=== PATIENT | female | born 1955 | race Hispanic/Latino ===

== ENCOUNTER 2024-02-20 06:34 | Day surgery (SDC) | payer OTHER ==
[2024-02-20] MEDS ORDERED: NA CHLORIDE 0.9% 1,000 ML ONE (06:54)
[2024-02-20 07:27] LABS: Absolute Eosinophils 0.3 K/uL (0-0.5); Absolute Lymphocytes (CBC) 2.5 K/uL (0.7-4.9); Absolute Monocytes 0.7 K/uL (0.1-1.3); Absolute Neutrophil 5.6 K/uL (1.8-8.0); Basophils % 0.3 % (0-1.3); Eosinophils % 3.3 % (0-4.4); Hematocrit 39.3 % (36.0-45.0); Hemoglobin 13.5 g/dL (12.0-15.0); Lymphocytes % 27.6 % (15.3-44.8); MCH 33.2 pg (27.0-35.0); MCHC 34.4 g/dL (32.0-36.0); MCV 96.4 fL (80-100); Monocytes % 7.7 % (3.3-12.3); Neutrophils % 61.1 % (41.7-73.7); Platelets 308 thou/uL (152-406); RBC Red Blood Cell Count 4.07 M/uL (3.86-4.86); Red Cell Distribution Width 13.3 % (12.1-15.2)
[2024-02-20 07:39] LABS: Anion Gap 9.4 mEq/L (5.0-15.0); Potassium 4.4 mEq/L (3.5-5.1)
[2024-02-20] MEDS ORDERED: LIDOCAINE 1% MPF 5 ML VIAL ONE (08:24)
[2024-02-20] MEDS ORDERED: propofoL 200 MG/20 ML VIAL IV ONE (08:25)
[2024-02-20 10:33] VITALS: BP 119/88; TEMP 97; O2SAT 100
--- NOTE | 2024-02-20 12:47 | EKG ---
Test Date: 2024-02-20 Test Time: 07:48:03 Meat Cutter: CHRIS MEASUREMENT RESULTS: Intervals: Rate: 58 MT: 150 QRSD: 94 QT: 426 QTc: 418 [place]: P: 52 MT: 150 QRS: 9 T: 56 INTERPRETIVE STATEMENTS: Sinus bradycardia Otherwise normal ECG Compared to ECG 02/08/2016 09:37:12 Sinus rhythm no longer present Electronically Signed On 02-20-24 12:46:28 CDT by Matt Alcala
== END 2024-02-20 10:15 | disposition home or self-care (01) ==
LOC: OR 06:34
PROVIDERS: ATTEND Surgery
PROC: 0DBM8ZX Excision of Descending Colon, Via Natural or Artificial Opening Endoscopic, Diagnostic (ICD-10-PCS; principal; 2024-02-20 08:30)
DX: Z12.11 Encounter for screening for malignant neoplasm of colon (principal); K63.5 Polyp of colon; Z86.010 Personal history of colon polyps
CPT/HCPCS: 45384; 93005; 85025; 80048; 36415; 82947; 88305; J2704; J2001; J7030